=== PATIENT | female | born 1935 | race Hispanic/Latino ===

== ENCOUNTER 2022-02-10 23:07 | Emergency (ER) | payer MEDICARE ==
[2022-02-11] MEDS ORDERED: SODIUM CHLORIDE 0.9% 1000 ML 1,000 ML IV ONE (00:10)
--- NOTE | 2022-02-11 00:18 | Emergency Department Report ---
ED General Adult HPI - General Chief complaint: Medical Clearance Stated complaint: FEVER/FAILURE TO THRIVE Source: patient, EMS Mode of arrival: Stretcher Limitations: No Limitations - History of Present Illness Initial comments: Ms Bruno is a 86 yo F sent in from [place] for medical evaluation for failure to thrive as patient has not been eating or drinking for the last 2 days and developed fever today. When asked patient says she has been having sore throat for the last 2 days and requested to be sent to Urgent Care but the correction did nothing about it. She also requested for her daughter to be notified but has not been done either. Pt denies any fever but chills. No other modifying or associated factors reported. - Related Data Previous Rx's Medication Instructions Recorded Last Taken Type Mirtazapine [Remeron] 15 mg PO DAILY 30 Days #30 tab NS 02/11/22 Unknown Rx Allergies Allergy/AdvReac Type Severity Reaction Status Date / Time dicloxacillin Allergy Hives Verified 02/10/22 23:26 oxycodone Allergy Rash Verified 02/10/22 23:27 ED Review of Systems ROS: Stated complaint: FEVER/FAILURE TO THRIVE Other details as noted in HPI Comment: All other systems reviewed and negative Constitutional: fever, malaise ENT: throat pain ED Past Medical Hx - Past Medical History Previous Medical History?: Yes Hx Psychiatric Treatment: Yes (Psychosis) - Surgical History Past Surgical History?: No - Social History Smoking Status: Current Every Day Smoker Substance Use Type: None - Medications Home Medications: Home Medications Medication Instructions Recorded Confirmed Last Taken Type Mirtazapine [Remeron] 15 mg PO DAILY 30 Days #30 tab NS 02/11/22 Unknown Rx ED Physical Exam - General Limitations: No Limitations General appearance: alert, in no apparent distress - Head Head exam: Present: atraumatic, normal inspection - Eye Eye exam: Present: normal appearance Pupils: Present: normal accommodation - ENT ENT exam: Present: normal exam, normal orophraynx, mucous membranes dry - Neck Neck exam: Present: normal inspection, full ROM. Absent: tenderness - Respiratory Respiratory exam: Present: normal lung sounds bilaterally. Absent: respiratory distress, accessory muscle use - Cardiovascular Cardiovascular Exam: Present: regular rate, normal rhythm, normal heart sounds - GI/Abdominal GI/Abdominal exam: Present: soft, normal bowel sounds. Absent: distended, tenderness - Extremities Exam Extremities exam: Present: normal inspection, full ROM, normal capillary refill. Absent: tenderness, pedal edema - Back Exam Back exam: Absent: tenderness - Neurological Exam Neurological exam: Present: alert, oriented X3 - Psychiatric Psychiatric exam: Present: normal affect, normal mood - Skin Skin exam: Present: warm, normal color ED Course Vital Signs 02/10/22 02/10/22 02/10/22 23:28 23:37 23:42 Temperature 101.2 F H Pulse Rate 81 Respiratory 18 17 Rate Blood Pressure 174/62 O2 Sat by Pulse 96 96 Oximetry 02/10/22 02/11/22 02/11/22 23:46 00:00 00:16 Temperature Pulse Rate 77 76 78 Respiratory 13 17 10 L Rate Blood Pressure 145/80 145/80 O2 Sat by Pulse 96 94 Oximetry 02/11/22 02/11/22 02/11/22 00:30 00:46 01:00 Temperature Pulse Rate 72 74 73 Respiratory 17 10 L 12 Rate Blood Pressure 145/80 139/55 145/80 O2 Sat by Pulse 96 97 Oximetry 02/11/22 02/11/22 02/11/22 01:15 01:30 01:46 Temperature Pulse Rate 73 71 79 Respiratory 17 13 15 Rate Blood Pressure 141/57 141/57 136/67 O2 Sat by Pulse 97 97 97 Oximetry 02/11/22 02/11/22 02/11/22 02:00 02:16 02:30 Temperature Pulse Rate 76 72 73 Respiratory 16 15 16 Rate Blood Pressure 136/67 135/78 135/78 O2 Sat by Pulse 97 96 95 Oximetry 02/11/22 02/11/22 02/11/22 02:46 03:00 03:16 Temperature Pulse Rate 76 72 74 Respiratory 13 14 14 Rate Blood Pressure 137/74 137/74 127/58 O2 Sat by Pulse 96 97 94 Oximetry 02/11/22 02/11/22 02/11/22 03:30 04:23 04:28 Temperature Pulse Rate 61 88 Respiratory 13 16 Rate Blood Pressure 127/58 126/57 O2 Sat by Pulse 95 Oximetry ED Medical Decision Making - Lab Data Result diagrams: 02/11/22 00:31 02/11/22 00:31 - Medical Decision Making sent in for failure to thrive and not been eating for the last 2 days-- Pt could be processing and infection especially since she is reporting sore throat -- so will go ahead and check RST and influenza and order routine labs including CBC, CMP and UA -- In the meantime will order ivf ns 1L bolus x 1 for hydration-- Pt reports feeling much better with the above treatment and was able to urinate as well Lab reviewed with sign of infection -- including urinalysis -- pt reassured and will try remeron to boost appetite -- Critical care attestation.: If time is entered above; I have spent that time in minutes in the direct care of this critically ill patient, excluding procedure time. ED Disposition Clinical Impression: Acute sore throat, Failure to thrive in adult Fever Qualifiers: Fever type: unspecified Qualified Code(s): R50.9 - Fever, unspecified Disposition: 01 HOME / SELF CARE / HOMELESS Is pt being admited?: No Does the pt Need Aspirin: No Condition: Stable Instructions: Pharyngitis, [id number], Sore Throat, Qbdd-[id number], Failure to Thrive, Adult, Qqrh-ak-[id number] Additional Instructions: Start with bland diet such as chicken noodle soup and advance as tolerated Take your new medication as prescribed that supposed to boost your appetite Call and schedule follow-up with your primary doctor in the next 3 to 5 days for progress Please do not hesitate to call or return to emergency if your symptoms worsen Prescriptions: Mirtazapine [Remeron] 15 mg PO DAILY 30 Days #30 tab NS Referrals: MARGOTH CARRILLO MD [Referring] - 3-5 Days Time of Disposition: 06:22
[2022-02-11 01:11] LABS: Hematocrit 35.6 % (30.3-42.9); Hemoglobin 12.1 gm/dl (10.1-14.3); Mean Corpuscular HGB Conc 34 % (30-34); Mean Corpuscular Volume 91 fl (79-97); Platelet Count 168 K/mm3 (140-440); Red Blood Count 3.93 M/mm3 (3.65-5.03); Red Cell Distribution Width 14.1 % (13.2-15.2)
[2022-02-11 02:02] LABS: Alanine Aminotransferase 11 units/L (7-56); Albumin 3.5 g/dL (3.9-5); Blood Urea Nitrogen 12 mg/dL (7-17); Calcium 8.4 mg/dL (8.4-10.2); Hemolysis Index 4
[2022-02-11 02:06] LABS: BUN/Creatinine Ratio 17
[2022-02-11 04:11] LABS: Anisocytosis 1+; Basophils % (Manual) 0 % (0.0-1.8); Eosinophils % (Manual) 0 % (0.0-4.3); Platelet Estimate Consistent w Auto; Total Cells Counted 100
[2022-02-11 04:36] LABS: Bacteria,Urine 1+ /HPF (Negative); Mucus,Urine FEW /HPF
[2022-02-11 04:47] LABS: Bilirubin,Urine Negative (Negative); Blood,Urine Negative (Negative); Color,Urine Yellow (Yellow); Protein,Urine <15 mg/dL mg/dL (Negative); Urobilinogen,Urine < 2.0 mg/dL (<2.0)
[2022-02-11] MEDS ORDERED: ACETAMINOPHEN 325 MG TAB PO ONE (08:19)
[2022-02-11 10:35] VITALS: BP 124/78
== END 2022-02-11 10:34 | disposition home or self-care (01) ==
LOC: ED 23:07
DX: J02.9 Acute pharyngitis, unspecified (principal); R50.9 Fever, unspecified; R62.7 Adult failure to thrive; F17.200 Nicotine dependence, unspecified, uncomplicated; Z91.09 Other allergy status, other than to drugs and biological substances
CPT/HCPCS: 36415; 80053; 81001; 85007; 85025; 96360; 99284; J7030; 80320; G0480

== ENCOUNTER 2022-02-20 14:58 | Emergency (ER) | payer MEDICARE ==
[2022-02-20 21:08] VITALS: BP 130/65
--- NOTE | 2022-02-20 21:26 | Emergency Department Report ---
HPI - General Chief Complaint: Medical Clearance Time Seen by Provider: 02/20/22 21:11 - HPI HPI: Room 7 The patient is an 86-year-old female sent from [facility] for chief complaint of rule out pneumonia and dehydration. Patient is currently at [facility] with a diagnosis of bipolar disorder. Per [facility] patient has not been eating or drinking and tested positive for COVID 02/16/2022. The patient was sent to the ED for evaluation to rule out pneumonia and dehydration. Patient denies complaints stating "I feel very well." Patient admits to a cough that is occasionally productive of sputum. Patient denies shortness of breath or fever. Patient states she has been fully vaccinated against COVID ED Past Medical Hx - Past Medical History Previous Medical History?: Yes Hx Psychiatric Treatment: Yes (Bipolar disorder/psychosis) Additional medical history: Hypothyroidism - Surgical History Past Surgical History?: No Additional Surgical History: Hysterectomy, cataract surgery, bilateral knee surgery - Family History Family history: no significant - Social History Smoking Status: Never Smoker Substance Use Type: None (Denies illicit drug use) - Medications Home Medications: Home Medications Medication Instructions Recorded Confirmed Last Taken Type Mirtazapine [Remeron] 15 mg PO DAILY 30 Days #30 tab NS 02/11/22 Unknown Rx ED Review of Systems ROS: Stated complaint: COVID POSSITIVE/DEHYDRATED Other details as noted in HPI Constitutional: denies: fever Eyes: denies: eye pain ENT: denies: throat pain Respiratory: cough. denies: shortness of breath Cardiovascular: denies: chest pain Endocrine: no symptoms reported Gastrointestinal: denies: abdominal pain Genitourinary: denies: dysuria Musculoskeletal: denies: back pain Neurological: denies: headache Physical Exam - Physical Exam Vital Signs: Vital Signs 02/20/22 02/20/22 15:07 21:02 Pulse Rate 55 L 59 L Respiratory 55 H 16 Rate Blood Pressure 140/70 130/65 [Left] O2 Sat by Pulse 96 97 Oximetry Physical Exam: GENERAL: The patient is well-developed well-nourished female lying on stretcher not appearing to be in acute distress. [] HEENT: Normocephalic. Atraumatic. Extraocular motions are intact. Patient has moist mucous membranes. NECK: Supple. Trachea midline CHEST/LUNGS: Clear to auscultation. Coarse breath sounds left base. No wheezing auscultated HEART/CARDIOVASCULAR: Regular. There is no tachycardia. There is no gallop rub or murmur. ABDOMEN: Abdomen is soft, nontender. Patient has normal bowel sounds. There is no abdominal distention. SKIN: There is no rash. There is no edema. There is no diaphoresis. NEURO: The patient is awake, alert, and oriented. The patient is cooperative. The patient has no focal neurologic deficits. The patient has normal speech. GCS 15 MUSCULOSKELETAL: There is no evidence of acute injury. ED Course Vital Signs 02/20/22 02/20/22 15:07 21:02 Pulse Rate 55 L 59 L Respiratory 55 H 16 Rate Blood Pressure 140/70 130/65 [Left] O2 Sat by Pulse 96 97 Oximetry - Reevaluation(s) Reevaluation #1: 02/20/22 23:51 2-minute walking SPO2 97% on room air ED Medical Decision Making - Lab Data Result diagrams: 02/20/22 21:41 02/20/22 21:41 Laboratory Tests 02/20/22 02/20/22 02/20/22 21:41 21:41 21:41 WBC 5.6 RBC 4.64 Hgb 14.0 Hct 41.4 MCV 89 MCH 30 MCHC 34 RDW 13.9 Plt Count 271 Lymph % (Auto) 35.4 H Bond % (Auto) 7.6 H Eos % (Auto) 1.0 Baso % (Auto) 0.7 Lymph # (Auto) 2.0 Bond # (Auto) 0.4 Eos # (Auto) 0.1 Baso # (Auto) 0.0 Seg Neutrophils % 55.3 Seg Neutrophils # 3.1 Sodium 143 Potassium 3.4 L Chloride 103.5 Carbon Dioxide 27 Anion Gap 16 BUN 19 H Creatinine 0.6 Estimated GFR > 60 BUN/Creatinine Ratio 32 Glucose 80 Calcium 9.1 Valproic Acid < 2.8 L - Radiology Data Radiology results: report reviewed (Chest x-ray), image reviewed (Chest x-ray) interpreted by me: Chest x-ray-no definite focal infiltrates, no pneumothorax [facility] [address] [place] [address] XRay Report Signed Patient: FIDENCIO CARR MR#: [id number] : 1935 Acct:[id number] Age/Sex: 86 / F ADM Date: 02/20/22 Loc: ED Attending Dr: Ordering Physician: REGAN BAR MD Date of Service: 02/20/22 Procedure(s): XR chest 1V ap Accession Number(s): [id number] cc: REGAN BAR MD Fluoro Time In Minutes: CHEST 1 VIEW 02/20/2022 9:26 PM INDICATION / CLINICAL INFORMATION: Cough, reportedly COVID-positive. COMPARISON: None available. FINDINGS: SUPPORT DEVICES: None. HEART / MEDIASTINUM: No significant abnormality. LUNGS / PLEURA: Bibasilar opacities are favored to represent atelectasis. The lungs are otherwise clear. No significant pleural effusion. No pneumothorax. ADDITIONAL FINDINGS: No significant additional findings. IMPRESSION: Probable bibasilar atelectasis without other acute findings. Signer Name: Fito Coombs MD Signed: 02/20/2022 9:56 PM Workstation Name: [id number] Transcribed By: [place] Dictated By: Fito Coombs MD Electronically Authenticated By: Fito Coombs MD Signed Date/Time: 02/20/222155 DD/ 54 TD/TT: - Differential Diagnosis COVID-pneumonia, bronchitis Critical care attestation.: If time is entered above; I have spent that time in minutes in the direct care of this critically ill patient, excluding procedure time. ED Disposition Clinical Impression: SARS-CoV-2 positive Disposition: [address] [place] [address] Is pt being admited?: No Does the pt Need Aspirin: No Condition: Stable Instructions: COVID-19: How to Protect Yourself and Others - CDC, Prevent the Spread of COVID-19 if You Are Sick - CDC Additional Instructions: Return to the emergency department should you develop worsening symptoms, inability to tolerate food or liquids, high fever or any other concerns Referrals: PRIMARY CAREMD [Primary Care Provider] - 3-5 Days Time of Disposition: 23:53
[2022-02-20] MEDS ORDERED: SODIUM CHLORIDE 0.9% 1000 ML 1,000 ML IV ONE (21:28)
--- NOTE | 2022-02-20 22:00 | XRay Report ---
CHEST 1 VIEW 02/20/2022 9:26 PM INDICATION / CLINICAL INFORMATION: Cough, reportedly COVID-positive. COMPARISON: None available. FINDINGS: SUPPORT DEVICES: None. HEART / MEDIASTINUM: No significant abnormality. LUNGS / PLEURA: Bibasilar opacities are favored to represent atelectasis. The lungs are otherwise lisa ar. No significant pleural effusion. No pneumothorax. ADDITIONAL FINDINGS: No significant additional findings. IMPRESSION: Probable bibasilar atelectasis without other acute findings. Signer Name: Fito Coombs MD Signed: 02/20/2022 9:56 PM Workstation Name: [id number]
[2022-02-20 22:23] LABS: Basophils % (Auto) 0.7 % (0.0-1.8); Blood Urea Nitrogen 19 mg/dL (7-17); Calcium 9.1 mg/dL (8.4-10.2); Eosinophils # (Auto) 0.1 K/mm3 (0.0-0.4); Hematocrit 41.4 % (30.3-42.9); Hemolysis Index 6; Lymphocytes % (Auto) 35.4 % (13.4-35.0); Mean Corpuscular HGB Conc 34 % (30-34); Mean Corpuscular Volume 89 fl (79-97); Monocytes # (Auto) 0.4 K/mm3 (0.0-0.8); Monocytes % (Auto) 7.6 % (0.0-7.3); Platelet Count 271 K/mm3 (140-440); Red Blood Count 4.64 M/mm3 (3.65-5.03); Red Cell Distribution Width 13.9 % (13.2-15.2)
[2022-02-20 22:32] LABS: BUN/Creatinine Ratio 32
[2022-02-20] MEDS ORDERED: POTASSIUM CHLORIDE ER 20 MEQ TAB PO ONE (23:52)
== END 2022-02-21 04:42 ==
LOC: ED 14:58
DX: J18.9 Pneumonia, unspecified organism (principal); R53.1 Weakness; U07.1 COVID-19; F31.9 Bipolar disorder, unspecified
CPT/HCPCS: 71045; 80048; 80164; 85025; 87040; 96360; 99284; J7030